=== PATIENT | female | born 1950 | race Caucasian/White ===

== ENCOUNTER 2024-02-14 11:11 | Inpatient (IN) | payer OTHER ==
[~2024-02-14] VITALS: Ht 167.6 cm; Wt 78.0 kg
[2024-02-14 11:24] VITALS: BP_SYST 153; PULSE 92; RESP 18; TEMP 101; O2SAT 96
[2024-02-14 11:56] LABS: BASOPHILS # (AUTO) 0.1 K/uL (0.0-0.2); BASOPHILS % (AUTO) 0.5 % (0.0-2.0); EOSINOPHILS % (AUTO) 0.1 % (0.0-4.0); HEMATOCRIT 42.2 % (36-48); HEMOGLOBIN 14.1 g/dL (12.0-16.0); LYMPHOCYTES # (AUTO) 1.4 K/uL (1.0-5.5); LYMPHOCYTES % (AUTO) 9.4 % (20.5-51.5); MEAN CORPUSCULAR HEMOGLOBIN 31 pg (27-31); MEAN CORPUSCULAR HGB CONC 33 % (32-36); MEAN CORPUSCULAR VOLUME 93 fL (79.0-98.0); MONOCYTES # (AUTO) 1.1 K/uL (0.0-1.0); MONOCYTES % (AUTO) 7.3 % (1.7-9.3); NEUTROPHILS # (AUTO) 12.2 K/uL (1.8-7.7); NEUTROPHILS % (AUTO) 82.7 % (40.0-70.0); PLATELET COUNT (AUTO) 107 K/uL (130-430); RED BLOOD CELL COUNT(AUTO) 4.55 MIL/uL (4.2-6.2); RED CELL DISTRIBUTION WIDTH 14.4 % (9.0-15.0); WHITE BLOOD COUNT (AUTO) 14.7 K/uL (4.8-10.8)
[2024-02-14] MEDS: ONDANSETRON HCL 4 MG/2 ML VIAL IVP ONE (12:02)
[2024-02-14] MEDS: MORPHINE 2 MG/ML INJ. SYRINGE IVP ONE ×2 (12:02→16:38)
[2024-02-14 12:17] LABS: INR 1.1 (0.8-1.2); PROTHROMBIN TIME 11.6 SECS (9.5-12.5)
[2024-02-14 12:30] LABS: ALANINE AMINOTRANSFERASE 30 U/L (12-78); ALBUMIN 2.8 g/dL (3.4-4.8); ANION GAP 7 (5-15); ASPARTATE AMINOTRANSFERASE 43 U/L (10-37); CALCIUM 8.5 mg/dL (8.4-11.0); CARBON DIOXIDE 28 mmol/L (23-29); CHLORIDE 96 mmol/L (98-107); CREATININE 0.77 mg/dL (0.55-1.30); GLUCOSE 306 mg/dL (74-106); POTASSIUM 4.3 mmol/L (3.5-5.1); SODIUM SERUM 131 mmol/L (136-145); TOTAL PROTEIN, SERUM 7.3 g/dL (6.4-8.3); UREA NITROGEN, BLOOD 10 mg/dL (8-21)
[2024-02-14 12:57] LABS: AMYLASE 37 U/L (0-100); BILIRUBIN,DIRECT 0.6 mg/dL (0.0-0.3); LIPASE 26 U/L (16-77)
[2024-02-14] MEDS: NACL 0.9% 1,000 ML IV ONE (14:30)
[2024-02-14] MEDS ORDERED: PIPERACILLIN/TAZOBACTAM 3.375 GM/VIAL (ZOSYN) IV ONE (15:38)
[2024-02-14] MEDS: 0.45% NACL 1,000 ML IV SCH (16:03)
[2024-02-14] MEDS: PIPERACILLIN/TAZO 3.375 GM in NS 50 ML IV ONE (16:32)
[2024-02-14 16:44] LABS: BILIRUBIN,URINE NEGATIVE (NEGATIVE); BLOOD, URINE 2+ (NEGATIVE); COLOR,URINE YELLOW (YELLOW); GLUCOSE,URINE 3+ (NEGATIVE); KETONES,URINE 1+ (NEGATIVE); LEUKOCYTE ESTERASE ,URINE NEGATIVE (NEGATIVE); NITRITE, URINE POSITIVE (NEGATIVE); PROTEIN URINE 1+ (NEGATIVE); UROBILINOGEN,URINE 0.2 (0.2-1.0)
[2024-02-14 17:21] LABS: CLARITY/URINE SLIGHTLY CLOUDY (CLEAR)
[2024-02-14 17:22] LABS: BACTERIA,URINE FEW /HPF (None Seen); MUCUS,URINE 2+ /LPF (None Seen)
[2024-02-14 17:23] LABS: FINE GRANULAR CASTS,URINE 0-10 /LPF (None Seen); URINE AMORPHOUS URATE 3+ /HPF (None Seen)
[2024-02-14] MEDS ORDERED: INSU500I SUBCUT (18:34)
[2024-02-14] MEDS ORDERED: EZET10TA30 PO (18:34)
[2024-02-14] MEDS: MIDAZOLAM HCL 2 MG/2 ML VIAL (VERSED) ONE (20:08)
[2024-02-14] MEDS: fentaNYL CITRATE/PF 100 MCG/2 ML AMP ONE (20:08)
[2024-02-14] MEDS ORDERED: ceFAZolin SODIUM 1 GM VIAL ONE (20:10)
[2024-02-14] MEDS ORDERED: NEOSTIGMINE METHYLSULFATE 1 MG/ML, 10 ML VIAL ONE (20:10)
[2024-02-14] MEDS ORDERED: METOCLOPRAMIDE HCL 10 MG/2 ML VIAL ONE (20:10)
[2024-02-14] MEDS ORDERED: PROPOFOL 200MG/ 20ML VIAL (DIPRIVAN) IV ONE (20:10)
[2024-02-14] MEDS ORDERED: ONDANSETRON HCL 4 MG/2 ML VIAL ONE (20:10)
[2024-02-14] MEDS ORDERED: ROCURONIUM BROMIDE 10 MG/ML (ZEMURON) ONE (20:10)
[2024-02-14] MEDS ORDERED: SEVOFLURANE 15 MIN GAS INH ONE (20:10)
[2024-02-14] MEDS ORDERED: NS IRRIG SOLN 1000 ML IR ONE (20:10)
[2024-02-14] MEDS ORDERED: NS 1000 ML IV.SOLN IV ONE (20:10)
[2024-02-14] MEDS ORDERED: LR 1,000 ML IV.SOLN IV ONE (20:10)
[2024-02-14] MEDS ORDERED: BUPIVACAINE /PF 0.25% 10 ML VIAL INJ ONE (20:10)
[2024-02-14] MEDS ORDERED: LIDOCAINE HCL/PF 1% 10 ML AMPUL INJ ONE (20:10)
[2024-02-14] MEDS: INSULIN REGULAR, HUMAN 100 UNITS/ML, 3 ML VIAL (humuLIN R) ONE (20:19)
[2024-02-14 20:36] LABS: INR 1.1 (0.8-1.2); PROTHROMBIN TIME 11.8 SECS (9.5-12.5)
[2024-02-14 23:45] VITALS: BP_SYST 123; PULSE 80; RESP 16; TEMP 98.2; O2SAT 98
[2024-02-15 00:02] VITALS: BP_SYST 123; PULSE 92; RESP 16; TEMP 98.2; O2SAT 98
[2024-02-15] MEDS: PIPERACILLIN/TAZOBACTAM 3.375 GM/VIAL (ZOSYN) IV ONE (00:11)
[2024-02-15] MEDS: PIPERACILLIN/TAZO 3.375/DEX-IS 50 ML IV SCH (00:11)
[2024-02-15] MEDS: INSULIN REGULAR, HUMAN 100 UNITS/ML, 3 ML VIAL (humuLIN R) SUBCUT PRN (00:22)
[2024-02-15] MEDS ORDERED: DEXTROSE 50% JECT 50 ML DISP.SYRIN IVP PRN (00:30)
[2024-02-15] MEDS ORDERED: GLUCOSE (DEXTROSE) ORAL GEL -Adults PO PRN (00:30)
[2024-02-15] MEDS ORDERED: D5W 1,000 ML IV PRN (00:30)
[2024-02-15 08:24] VITALS: BP_SYST 107; PULSE 78; RESP 18; TEMP 98.8; O2SAT 94
[2024-02-15 08:26] VITALS: O2SAT 2
[2024-02-15 10:31] LABS: BASOPHILS # (AUTO) 0.1 K/uL (0.0-0.2); BASOPHILS % (AUTO) 0.8 % (0.0-2.0); EOSINOPHILS % (AUTO) 0.3 % (0.0-4.0); HEMATOCRIT 38.1 % (36-48); HEMOGLOBIN 12.7 g/dL (12.0-16.0); LYMPHOCYTES # (AUTO) 1.4 K/uL (1.0-5.5); LYMPHOCYTES % (AUTO) 11.4 % (20.5-51.5); MEAN CORPUSCULAR HEMOGLOBIN 31 pg (27-31); MEAN CORPUSCULAR HGB CONC 33 % (32-36); MEAN CORPUSCULAR VOLUME 93 fL (79.0-98.0); MONOCYTES % (AUTO) 8.5 % (1.7-9.3); NEUTROPHILS # (AUTO) 9.5 K/uL (1.8-7.7); PLATELET COUNT (AUTO) 71 K/uL (130-430); RED BLOOD CELL COUNT(AUTO) 4.09 MIL/uL (4.2-6.2); RED CELL DISTRIBUTION WIDTH 14.2 % (9.0-15.0)
[2024-02-15 13:35] VITALS: BP_SYST 117; PULSE 72; RESP 18; TEMP 98.3; O2SAT 98
[2024-02-15 17:23] VITALS: BP_SYST 124; PULSE 77; RESP 20; TEMP 98.4; O2SAT 96
[2024-02-15 20:00] VITALS: BP_SYST 129; PULSE 94; RESP 16; TEMP 98.2; O2SAT 2; O2SAT 96
[2024-02-15] MEDS: ONDANSETRON HCL 4 MG/2 ML VIAL IVP PRN (20:23)
[2024-02-15] MEDS: HYDROmorphone 2 MG/ML VIAL IVP PRN (20:24)
[2024-02-16] VITALS (8 sets, daily range): BP systolic 119–138; PULSE 63–79; RESP 15–18; TEMP 97–98; O2SAT 95–99
[2024-02-16] MEDS ORDERED: ACETAMINOPHEN 325 MG TABLET PO PRN (09:30)
[2024-02-16] MEDS ORDERED: NALOXONE HCL 0.4 MG/ML AMP (NARCAN) IVP PRN ×2 (09:30)
[2024-02-16] MEDS ORDERED: HYDROcodone/ACETAMIN 5-325 MG TAB (NORCO/ VICODIN) PO PRN (09:30)
[2024-02-16] MEDS: EZETIMIBE 10 MG TABLET PO ONE (10:38)
[2024-02-16] MEDS: NORMAL SALINE 5 ML DISP.SYRIN IVF SCH (13:44)
[2024-02-16 14:02] LABS: ALANINE AMINOTRANSFERASE 21 U/L (12-78); ALBUMIN 2.4 g/dL (3.4-4.8); ANION GAP 9 (5-15); ASPARTATE AMINOTRANSFERASE 34 U/L (10-37); CARBON DIOXIDE 26 mmol/L (23-29); CHLORIDE 101 mmol/L (98-107); CREATININE 0.54 mg/dL (0.55-1.30); GLUCOSE 217 mg/dL (74-106); POTASSIUM 3.8 mmol/L (3.5-5.1); SODIUM SERUM 136 mmol/L (136-145); TOTAL BILIRUBIN 1.6 mg/dL (0.0-1.0); TOTAL PROTEIN, SERUM 6.9 g/dL (6.4-8.3); UREA NITROGEN, BLOOD 10 mg/dL (8-21)
[2024-02-16] MEDS ORDERED: HYDR-3917 PO (16:46)
[2024-02-16] MEDS: HYDROcodone/ACETAMIN 10-325 MG TAB PO PRN (21:13)
[2024-02-17] VITALS: BP_SYST 135; PULSE 70; RESP 16; TEMP 97.4; O2SAT 96
[2024-02-17 07:35] LABS: BASOPHILS % (AUTO) 0.7 % (0.0-2.0); EOSINOPHILS # (AUTO) 0.2 K/uL (0.0-0.4); EOSINOPHILS % (AUTO) 4.2 % (0.0-4.0); HEMATOCRIT 38.6 % (36-48); HEMOGLOBIN 12.9 g/dL (12.0-16.0); LYMPHOCYTES # (AUTO) 1.1 K/uL (1.0-5.5); MEAN CORPUSCULAR HEMOGLOBIN 31 pg (27-31); MEAN CORPUSCULAR HGB CONC 34 % (32-36); MEAN CORPUSCULAR VOLUME 93 fL (79.0-98.0); MONOCYTES # (AUTO) 0.4 K/uL (0.0-1.0); MONOCYTES % (AUTO) 8.4 % (1.7-9.3); NEUTROPHILS # (AUTO) 3.4 K/uL (1.8-7.7); NEUTROPHILS % (AUTO) 65.7 % (40.0-70.0); PLATELET COUNT (AUTO) 96 K/uL (130-430); RED BLOOD CELL COUNT(AUTO) 4.14 MIL/uL (4.2-6.2); RED CELL DISTRIBUTION WIDTH 13.7 % (9.0-15.0); WHITE BLOOD COUNT (AUTO) 5.1 K/uL (4.8-10.8)
[2024-02-17 07:48] LABS: ANION GAP 4 (5-15); CALCIUM 8.1 mg/dL (8.4-11.0); CARBON DIOXIDE 31 mmol/L (23-29); CHLORIDE 99 mmol/L (98-107); CREATININE 0.66 mg/dL (0.55-1.30); GLUCOSE 260 mg/dL (74-106); POTASSIUM 3.6 mmol/L (3.5-5.1); SODIUM SERUM 134 mmol/L (136-145); UREA NITROGEN, BLOOD 11 mg/dL (8-21)
[2024-02-17 07:56] VITALS: BP_SYST 156; PULSE 79; RESP 18; TEMP 96.9; O2SAT 95
[2024-02-17 08:02] VITALS: BP_SYST 145; PULSE 79; RESP 18; TEMP 96.9; O2SAT 95
[2024-02-17] MEDS: EZETIMIBE 10 MG TABLET PO SCH (08:31)
[2024-02-17 09:59] VITALS: O2SAT 96
[2024-02-28] MEDS ORDERED: TRAM50TA2 PO ×2 (14:35→14:38)
[2024-02-28] MEDS ORDERED: IBUP-1969 PO ×2 (14:35→14:38)
== END 2024-02-17 11:10 | disposition home or self-care (01) | DRG 398 ==
LOC: SED 11:11 → STU 14:57 → SMU 02-16 12:18
PROVIDERS: ADMIT Specialist; ATTEND Specialist
PROC: 0DTJ4ZZ Resection of Appendix, Percutaneous Endoscopic Approach (ICD-10-PCS; principal; 2024-02-14 20:10)
DX: K35.80 Unspecified acute appendicitis (principal); E44.1 Mild protein-calorie malnutrition; R65.10 Systemic inflammatory response syndrome (SIRS) of non-infectious origin without acute organ dysfunction; E66.01 Morbid (severe) obesity due to excess calories; E11.9 Type 2 diabetes mellitus without complications; E78.5 Hyperlipidemia, unspecified; Z79.899 Other long term (current) drug therapy; Z88.8 Allergy status to other drugs, medicaments and biological substances; Z68.27 Body mass index [BMI] 27.0-27.9, adult
CPT/HCPCS: 36415; 71045; 80048; 80053; 80076; 81000; 81001; 81015; 82150; 82948; 83605; 83690; 85025; 85610; 85730; 86886; 86900; 86901; 87040; 87081; 87086; 88304; 93005; 96365; 97110-GP; 97116-GP; 97530-GP; 99285; C1727; G0378; J0690; J1170; J1815; J2001; J2250; J2270; J2405; J2543; J2704; J2710; J2765; J3010; J3490; J7030; J7060; J7120